=== PATIENT | female | born 1990 | race Caucasian/White ===

== ENCOUNTER 2019-01-18 05:37 | Day surgery (SDC) | payer MEDICAID, OTHER ==
[2019-01-18] VITALS (19 sets, daily range): BP systolic 103–132; BP diastolic 48–70; PULSE 58–82; RESP 14–18; Ht 175.3 cm; Wt 62.1 kg
[~2019-01-18] VITALS: Ht 175.3 cm; Wt 62.1 kg
[2019-01-18] MEDS ORDERED: ACETAMINOPHEN 500 MG TAB PO ONE (06:30)
[2019-01-18] MEDS ORDERED: BUPIVACAINE 0.5%/EPI (SDV) 30 ML INJ ONE (06:50)
--- NOTE | 2019-01-18 07:06 | PREAC ---
Date/Time of Note Date/Time of Note DATE: 01/18/19 TIME: 07:05 Anesthesia Eval and Record Evaluation Time Pre-Procedure Interview DATE: 01/18/19 TIME: 07:05 Age 28 Sex female NPO: 8 hrs Preoperative diagnosis elective sterilization Planned procedure laparoscopic tubal fulguration poss laparotomy bilateral tubal ligation Past Medical History Past Medical History: Includes Pulm: Smoking Hx (smokes marijuana daily for longer than 10 years) Surgery & Anesthesia Issues No known issue Meds Anticoagulation: No Beta Anton within 24 hr: No Reason Beta Anton not given: Pt. not on B-Anton No Active Prescriptions or Reported Meds Meds reviewed: Yes Allergies Coded Allergies: No Known Allergy (Unverified , 01/18/19) Allergies Reviewed: Yes Labs/Studies Labs Reviewed: Reviewed by anesthesiologist test: Negative Pre-procedure Exam Airway: Adequate mouth opening, Adequate thyromental dist Mallampati: Mallampati II Teeth: Normal Lung: Normal Heart: Normal ASA Physical Status ASA physical status: 2 Emergency: None Planned Anesthetic General/MAC: ETT Pre-operative Attestations Prior to commencing anesthesia and surgery, the patient was re-evaluated, there was verification of: *The patient's identity *The results of appropriate recent lab work and preoperative vital signs *The above evaluation not changing prior to induction *Anesthetic plan, risk benefits, alternative and complications discussed with patient/family; questions answered; patient/family understands, accepts and wishes to proceed. SHERYL MARTINEZ Jan 18, 2019 07:06
[2019-01-18] MEDS ORDERED: PROPOFOL 20 ML ONE ×2 (07:18→08:12)
[2019-01-18] MEDS ORDERED: LIDOCAINE 2% (SDV) 5 ML INJ ONE (07:18)
[2019-01-18] MEDS ORDERED: MIDAZOLAM 1 MG/ML 2 ML INJ ONE (07:18)
[2019-01-18] MEDS ORDERED: FENTAnyl 50 MCG/ML VIAL ONE ×2 (07:18→08:32)
[2019-01-18] MEDS ORDERED: ROCURONIUM 50 MG INJ ONE (07:18)
[2019-01-18] MEDS ORDERED: FAMOTIDINE 20 MG INJ ONE (07:19)
[2019-01-18] MEDS ORDERED: ONDANSETRON 4 MG INJ ONE (07:19)
[2019-01-18] MEDS ORDERED: MEPERIDINE 25 MG INJ IV PRN (07:30)
[2019-01-18] MEDS ORDERED: OXYCODONE/ACETAMINOPHEN (5/325) TAB PO PRN ×2 (07:30)
[2019-01-18] MEDS ORDERED: FENTAnyl 50 MCG/ML VIAL IV PRN ×2 (07:30)
[2019-01-18] MEDS ORDERED: ONDANSETRON 4 MG INJ IV PRN (07:30)
[2019-01-18] MEDS ORDERED: HYDROmorphONE 1 MG/5 ML IV SYRINGE IV PRN ×2 (07:30)
[2019-01-18] MEDS ORDERED: LABETALOL HCL 20MG INJ IV PRN (07:30)
[2019-01-18] MEDS ORDERED: morphine (1 MG/ML) 10ML SYRINGE IV PRN ×2 (07:30)
[2019-01-18] MEDS ORDERED: DIPHENHYDRAMINE 50 MG INJ IV PRN (07:30)
[2019-01-18] MEDS ORDERED: ALBUTEROL 0.083% (NEB) 2.5 MG/3 ML AMP HHN PRN (07:30)
[2019-01-18] MEDS ORDERED: DEXAMETHASONE 4 MG/ML 5 ML INJ ONE (07:42)
[2019-01-18] MEDS ORDERED: NEOSTIGMINE 10 MG INJ ONE (08:01)
[2019-01-18] MEDS ORDERED: GLYCOPYRROLATE 0.4 MG INJ ONE (08:01)
--- NOTE | 2019-01-18 08:43 | PAC ---
Date/Time of Note Date/Time of Note DATE: 01/18/19 TIME: 08:41 Post-Anesthesia Notes Post-Anesthesia Note Last documented vital signs Vital Signs Date Temp Pulse Resp B/P Pulse Ox O2 O2 Flow FiO2 Time (MAP) Delivery Rate 01/18/19 98.2 99.2 78 82 18 17 126/70 98 100 Room 07:16 071 (88) 119 Air face mask 8L Activity: WNL Respiratory function: WNL Cardiovascular function: WNL Mental status: Baseline Pain reasonably controlled: Yes Hydration appropriate: Yes Nausea/Vomiting absent: Yes SHERYL MARTINEZ Jan 18, 2019 08:43
--- NOTE | 2019-01-18 08:54 | OPR ---
Date/Time of Note Date/Time of Note DATE: 01/18/19 TIME: 08:50 Operative Report Procedure Date: Jan 18, 2019 Preoperative Diagnosis Desires permanent sterilization Postoperative Diagnosis Same Operation/Procedure Performed laparoscopic bilateral salpingectomies Surgeon Huan Pearson MD Air Valve Repairer none Anesthesia Type: general Estimated Blood Loss: minimal Transfusion none Specimen bilateral segments of the tubes Grafts/Implants none Tubes/Drains none Complications none Pt Condition Post Procedure: stable Disposition: PACU Procedure Description FINDINGS: Normal tubes, ovaries bilaterally. Normal uterus. CONSENT: Please see my preop H and P consent in the office for the consent process. DESCRIPTION OF PROCEDURE: She was taken to operating room and general anesthesia was induced. She was prepped and draped in the usual sterile fashion in dorsal lithotomy position. Surgical time-out was done. Anterior lip of the cervix was grasped using a single-tooth tenaculum, and a HUMI was inserted in normal fashion. The tenaculum was removed. There was no bleeding from the cervix. The patient already had a Tanner catheter as well. Gloves were changed. A 5 mm incision was developed inside the umbilicus. A blunt trocar was inserted in the normal fashion. Intraperitoneal position was confirmed using the laparoscope. Pneumoperitoneum was obtained. The patient was placed in Trendelenburg position. A second trocar was inserted under direct visualization of the laparoscope at the pubic hairline in the midline. Right tube was coagulated and transected 7 cm medial to fimbriated portion of the tube. Right salpingectomy was performed by coagulating and transecting the mesosalpinx while at all times hugging the tube. The tube was removed and sent to pathology. the edges of the mesosalpinx was not bleeding, but for abundance of precaution, I cauterized the edges of the mesosalpinx again. There was no bleeding. Same procedure was done on the contralateral side. All instruments removed under direct visualization of the laparoscope after pneumoperitoneum was released. There was no bleeding. Skin closed using 4-0 Monocryl. Then 10 mL 0.25% Marcaine with epinephrine was injected at the incision sites. HUMI was removed. There was no bleeding from the vagina. Patient tolerated the procedure well. HUAN PEARSON MD Jan 18, 2019 08:54
== END 2019-01-18 10:30 | disposition home or self-care (01) ==
LOC: SDS 05:37
PROVIDERS: ATTEND Specialist
DX: Z30.2 Encounter for sterilization (principal); F12.90 Cannabis use, unspecified, uncomplicated; Z87.891 Personal history of nicotine dependence
CPT/HCPCS: 58661; 88302; J1100; J1170; J2250; J2405; J2710; J3010; Z7512; Z7610